=== PATIENT | female | born 1980 | race Caucasian/White ===

== ENCOUNTER 2016-05-12 21:30 | Emergency (ER) | payer OTHER ==
[2016-05-12 23:31] LABS: BASOPHIL % 0.5 % (0-2); PLATELET COUNT 346 x10^3mcL (130-400)
[2016-05-12 23:35] LABS: RED CELL DISTRIBUTION WIDTH 15.5 % (11.5-14.5)
[2016-05-12 23:41] LABS: CHLORIDE SERUM 105 mmol/L (98-107); CREATININE SERUM 0.7 mg/dL (0.6-1.0); GFR1 > 60 mL/min; GLUCOSE SERUM 100 mg/dL (74-106); POTASSIUM SERUM 3.8 mmol/L (3.5-5.1); SODIUM SERUM 140 mmol/L (136-145)
[2016-05-12 23:46] LABS: ALBUMIN 3.5 g/dL (3.4-5.0); ALKALINE PHOSPHATASE 45 U/L (46-116); ALT/SGPT 22 U/L (14-59); AST/SGOT 22 U/L (15-37); BILIRUBIN TOTAL 0.2 mg/dL (0.20-1.00); LIPASE 168 IU/L (73-393)
[2016-05-13 02:21] VITALS: BP 103/68
== END 2016-05-13 02:21 | disposition home or self-care (01) ==
LOC: ED 21:30
PROVIDERS: Emergency Medicine
DX: R10.9 Unspecified abdominal pain (principal); D64.9 Anemia, unspecified
CPT/HCPCS: J1885; J2270; J2405; J7030

== ENCOUNTER 2016-11-21 09:30 | Emergency (ER) | payer OTHER ==
[~2016-11-21] VITALS: Ht 157.5 cm; Wt 57.6 kg
[2016-11-21 09:51] VITALS: BP 140/76
== END 2016-11-21 10:45 | disposition home or self-care (01) ==
LOC: ED 09:30
DX: S66.911A Strain of unspecified muscle, fascia and tendon at wrist and hand level, right hand, initial encounter (principal); X58.XXXA Exposure to other specified factors, initial encounter; Y93.89 Activity, other specified; Y99.8 Other external cause status; Y92.89 Other specified places as the place of occurrence of the external cause
CPT/HCPCS: A4570

== ENCOUNTER 2018-03-01 20:51 | Emergency (ER) | payer OTHER ==
[~2018-03-01] VITALS: Ht 157.5 cm; Wt 59.0 kg
[2018-03-01 22:01] VITALS: Ht 157.5 cm; Wt 59.0 kg
[2018-03-01 23:51] VITALS: BP 134/76
== END 2018-03-02 00:10 | disposition home or self-care (01) ==
LOC: ED 20:51
DX: S60.221A Contusion of right hand, initial encounter (principal); Z90.49 Acquired absence of other specified parts of digestive tract; X58.XXXA Exposure to other specified factors, initial encounter; Y93.89 Activity, other specified; Y92.89 Other specified places as the place of occurrence of the external cause; Y99.8 Other external cause status